=== PATIENT | male | born 1995 | race Caucasian/White ===

== ENCOUNTER 2018-03-19 16:18 | Emergency (ER) | payer SELFPAY ==
[2018-03-19 16:19] VITALS: BP 162/97; PULSE 86; RESP 16; TEMP 36.5; O2SAT 98; BMI 43.5
--- NOTE | 2018-03-19 16:34 | ED.DCSUM_ITS ---
- ER Visit Summary Date of Service: 03/19/18 Chief Complaint: [Left foot pain] History of Present Illness: The patient is a 22 M [presents the emergency department pain his left foot over the course last month and a half. Patient denies any trauma. Patient states that throughout the day he will have disco mfort when he steps with his left foot specifically to the medial and dorsal aspect of the foot. Patient has not had any fevers. Patient has no primary care physician and has not seen anybody for this.] Physical Examination: [Left foot-patient has tenderness to palpation over the first MTP joint with some hypertrophy noted over the medial aspect of the joint. Patient neurovascular intact distally. No obvious deformity. No soft tissue swelling, ecchymosis or bruising.] Test Results: [There is a left foot obtained showed no fractures or dislocatio ns. There was some mild soft tissue swelling noted.] Emergency Department Course and Treatment: [Patient refused crutches.] Treatment Plan: [She will be given a prescription for an anti-inflammatory and referral to podiatry.] Disposition: [Discharged home in stable condition] Impression: [Left foot pain-etiology uncertain.] This note was generated with [employer] dictation software. It may contain incorrect words, spelling, and punctuation that were not noted in review of the chart prio r to signing ED Disposition - Plan for ED Patient: Chief Complaint: Lower Extremity Injury Referrals: Lopez Gasca MD [Primary Care Provider] -
--- NOTE | 2018-03-19 16:40 | RAD_ITS ---
STUDY: X-RAY - LEFT FOOT CLINICAL: Male, 22 years old. Pain TECHNIQUE: Three view(s) of the foot were obtained. COMPARISON: None. FINDINGS: Bones: There are no acute osseous abnormalities. Joints: The visualized joints are unremarkable. Soft tissues: Mild diffuse soft tissue swelling. Foreign body: None RAD/Foot min 3 Views IMPRESSION: No acute osseous abnormalities are seen. There is mild diffuse soft tissue swelling. Electronically Signed: Noemi Galeas MD at 17:21 EST Tel Direct: [phone], Service support ,
--- NOTE | 2018-03-19 17:43 | ED.DEP ---
ED Disposition - Plan for ED Patient: Chief Complaint: Lower Extremity Injury Instructions: ED Sprain Foot Prescriptions: Naproxen [Naprosyn] 500 mg PO BID PRN #20 tab Referrals: Lopez Gasca MD [Primary Care Provider] - Kal Gr DPM [STAFF PHYSICIAN] - 3-5 Days
== END 2018-03-19 17:48 | disposition home or self-care (01) ==
PROVIDERS: Emergency Provider Emergency Medicine; Family Provider Pediatrics; PCP Pediatrics
DX: M79.672 Pain in left foot (principal); F17.220 Nicotine dependence, chewing tobacco, uncomplicated
CPT/HCPCS: 73630; 99282

== ENCOUNTER 2019-01-31 11:34 | Emergency (ER) | payer SELFPAY ==
[2019-01-31 11:36] VITALS: BP 139/76; PULSE 110; RESP 18; TEMP 38.7; O2SAT 94; BMI 43.4
[2019-01-31] MEDS: Ketorolac 15 MG/ML Vial IV (12:45)
[2019-01-31] MEDS: 0.9% Normal Saline 1,000 ML 1000 ML IV (12:45)
[2019-01-31 12:52] LABS: Absolute Lymphocyte Count 0.58 X10^3/uL (0.83-4.51); Absolute Neutrophil Count 6.8 X10^3/uL (2.0-7.7); Basophil# 0.05 X10^3/uL; Basophil% 0.6 % (0-1); Eosinophil# 0.03 X10^3/uL; Eosinophils% 0.4 % (0-5); Hematocrit 42.6 % (40-54); Hemoglobin 14.2 g/dL (13.0-16.5); Lymphocyte # 0.58 X10^3/ul (4.0); Lymphocyte % 7.3 % (19-41); Mean Corp Hgb Conc 33.3 g/dL (32-36); Mean Corpuscular Hgb 29.3 pg (27.0-32.0); Mean Platelet Vol. 10.7 fl (6.2-12.0); Monocyte# 0.46 X10^3/uL; Monocyte% 5.8 % (0-10); NRBC Flagged by Analyzer 0 % (0-5); Neutrophil % 85.4 % (47-70); POSITIVE DIFFERENTIAL YES; Platelet Count 210 K/mm3 (150-450); RBC Distribution Width CV 13.2 % (11.6-14.6); RBC Distribution Width SD 42.7 fl (35.1-43.9); Red Blood Count 4.84 M/mm3 (4.6-6.2)
[2019-01-31 13:04] LABS: Anion Gap 7 (5-15); BUN 13 mg/dL (7-18); BUN/Creat Ratio 11.4 RATIO (10-20); Calcium,Total 8.6 mg/dL (8.5-10.1); Chloride 106 mmol/L (98-107); Creatinine, Serum 1.14 mg/dL (0.70-1.30); Differential Indicated SCAN CRITERIA MET; EST Glomerular Filtration Rate 84 mL/min (>60); Est Glom Filt Rate - Afr Amer 101 mL/min (>60); Estimated Creatinine Clearance 112.92 ml/min; Glucose 91 mg/dL (74-106); Potassium 4.3 mmol/L (3.5-5.1); Sodium Level 138 mmol/L (136-145)
--- NOTE | 2019-01-31 13:04 | RAD_ITS ---
STUDY: X-RAY CHEST REASON FOR EXAM: Male, 23 years old. Cough, fever and body aches. TECHNIQUE: PA and lateral views of the chest. COMPARISON: None. FINDINGS: EKG electrodes are seen. Right middle lobe consolidation. There is no demonstrated pleural abnormality. Normal size heart. Normal mediastinum and alexsandra. Normal visualized pulmonary arteries. Normal visualized aortic arch and descending thoracic aorta. Normal visualized thoracic spine. Normal visualized ribs, clavicles, and shoulders. There is no demonstrated abnormality of the visualized soft tissue structures of the upper abdomen. RAD/Chest PA and Lateral IMPRESSION: Right middle lobe consolidation. Electronically Signed: Perez Carlos, at 13:36 EST , Service support ,
[2019-01-31 13:21] VITALS: BP 114/69; PULSE 88; RESP 28; TEMP 37.9; O2SAT 94
[2019-01-31 14:01] VITALS: O2SAT 96
--- NOTE | 2019-01-31 14:13 | ED.VIS.URI ---
History of Present Illness Chief Complaint: Fever Narrative: Patient presenting for evaluation secondary to a respiratory illness and fever. Patient reports that he has had symptoms over the course of about the last 3 days. Upon the onset of symptoms he was seen at urgent care, had a negative flu and was placed on a course of steroids. He states that he has not been having any improvement of the symptoms. He states that he has a cough that is minimally productive of sputum. He has generalized body aches, myalgias, significant fatigue. He denies any nausea vomiting or diarrhea. Patient is otherwise healthy and up-to-date on vaccines. Patient denies any recent travel, admissions, or antibiotic use. Past Medical History - Allergies and Home Meds Allergies/Adverse Reactions: Allergies No Known Allergies Allergy (Verified 01/31/19 11:38) Primary Care Physician: Care Physician,No Primary [Primary Care Provider] - Past Medical History: None Smoking Status: Current every day smoker Review of Systems All systems negative except as indicated General: Reports: Fever, Malaise, Sweats Eyes: Denies: Visual changes - bilaterally, Diplopia ENT: Denies: Rhinorrhea, Sore throat Cardiovascular: Denies: Chest pain, Palpitations Respiratory: Reports: Dyspnea, Cough, Sputum Gastrointestinal: Denies: Abdominal pain, Nausea, Vomiting, Diarrhea, Melena, Hematochezia Genitourinary: Denies: Dysuria, Hematuria, Frequency Musculoskeletal: Reports: Myalgias Skin: Denies: Rash Neurological: Denies: Headache Psych: Denies: Depression Endocrine: Denies: Polyuria Hematologic: Denies: Easy bruising Allergy: Denies: Uticaria Physical Exam Vital Signs/Narrative: Vital Signs Temp Pulse Resp BP Pulse Ox 01/31/19 13:21 100.3 F H 88 28 H 114/69 94 01/31/19 11:36 101.6 F H 110 H 18 139/76 H 94 Inital Vital Signs reviewed: Yes General: Well nourished, Well developed, - - Somewhat ill-appearing but otherwise not in physiologic distress Head: Normocephalic, Atraumatic Eyes: Perrl, EOMI Ears: Normal external canal, TM's clear Nose: Normal Inspection, No Rhinorrhea Mouth/Throat: Normal Inspection, No Posterior Erythema Neck: No Meningismus, Anterior Lymphadenopathy Cardiovascular: Regular rhythm, No murmurs, Tachycardia, - - Plus radial pulses bilaterally symmetric Respiratory: No distress, CTA bilaterally, Chest nontender Abdomen: Soft, Nontender, Nondistended, Normal bowel sounds Back: Nontender, Normal Inspection Extremities: Nontender, No edema Skin: Normal color, No rash Neurological: Alert, Oriented x3, Cranial nerves II-XII grossly intact, Normal Strength, Normal Sensation Psychological: Normal affect Diagnostic/Tx/Re-eval Chest X-Ray - ED: 2 View, Read by ED Physician, Read by Radiologist, Right Infiltrate - Medical Decision Making Patient presented secondary to flulike illness. Patient was found to be febrile in the emergency department. IV was established laboratory studies were obtained. CBC and chemistry unremarkable. Patient had improvement with fluids and Toradol. Flu swab was found to be negative. PA and lateral chest x-ray by my personal review as well as radiology shows right middle lobe infiltrate. Patient was ambulated in the emergency department and did not have desaturation. At this point I believe that he is appropriate for outpatient management. Patient will be started on a course of doxycycline first dose given in the emergency department. He understands signs and symptoms which to return. He was discharged in stable condition. Disposition: Home ED Disposition - Plan for ED Patient: Disposition: Home or Assisted Living Diagnosis: Community acquired pneumonia Instructions: PNEUMONIA (Adult) Prescriptions: Doxycycline 100 mg PO BID #20 cap Prescription Printed Referrals: Caleb Sanchez MD [NON-STAFF] - 1 Week
[2019-01-31 14:18] VITALS: BP 110/62; PULSE 90
[2019-01-31] MEDS: Doxycycline 100 MG CAPSULE PO (14:45)
[2019-01-31 14:46] VITALS: BP 131/76; PULSE 83; RESP 14; O2SAT 99
== END 2019-01-31 15:05 | disposition home or self-care (01) ==
PROVIDERS: Emergency Provider Emergency Medicine
DX: J18.9 Pneumonia, unspecified organism (principal); F17.210 Nicotine dependence, cigarettes, uncomplicated
CPT/HCPCS: 71046; 80048; 85025; 87804; 96361; 96374; 99284; J7030; A4216

== ENCOUNTER → 2024-04-21 | Outpatient (CLI) | payer OTHER, SELFPAY ==
[2024-04-21 12:21] LABS: Absolute Lymphocyte Count 1.18 X10^3/uL (0.83-4.51); Absolute Neutrophil Count 2.9 X10^3/uL (2.0-7.7); Basophil# 0.04 X10^3/uL; Basophil% 0.8 % (0-1); Eosinophil# 0.18 X10^3/uL; Eosinophils% 3.8 % (0-5); Hematocrit 47.2 % (40-54); Hemoglobin 15.2 g/dL (13.0-16.5); Lymphocyte # 1.18 X10^3/ul (0.83-4.51); Lymphocyte % 24.8 % (19-41); Mean Corp Hgb Conc 32.2 g/dL (32-36); Mean Corpuscular Hgb 28.3 pg (27.0-32.0); Mean Corpuscular Volume 87.9 fL (80-94); Mean Platelet Vol. 10.7 fl (6.2-12.0); Monocyte# 0.41 X10^3/uL; Monocyte% 8.6 % (0-10); NRBC Flagged by Analyzer 0 % (0-5); Neutrophil # 2.94 X10^3/uL (2.7-7.7); Neutrophil % 61.8 % (47-70); Platelet Count 247 K/mm3 (150-450); Red Blood Count 5.37 M/mm3 (4.6-6.2); White Blood Count 4.8 K/mm3 (4.4-11.0)
[2024-04-21 12:44] LABS: AST(SGOT) 25 U/L (15-37); Alanine Aminotransfer ALT/SGPT 74 U/L (16-61); Albumin, Serum 3.8 g/dL (3.2-5.0); Alkaline Phosphatase 38 U/L (45-117); Bilirubin, Direct 0.16 mg/dL (0.00-0.30); Globulin 3.7 g/dL (2.2-4.2); Protein, Total 7.5 g/dL (6.4-8.2)
== END | disposition home or self-care (01) ==
LOC: LAB 12:07
DX: K29.70 Gastritis, unspecified, without bleeding (principal); R74.8 Abnormal levels of other serum enzymes
CPT/HCPCS: 36415; 80076; 85025

== ENCOUNTER → 2024-04-24 | Outpatient (CLI) | payer OTHER, SELFPAY ==
--- NOTE | 2024-04-24 10:48 | US_ITS ---
PROCEDURE: ABDOMEN LIMITED REASON FOR EXAM: Elevated liver enzymes. Epigastric pain. COMPARISON: None FINDINGS: Liver: Hepatomegaly, with diffusely echogenic hepatic parenchyma. No focal process is seen. No evidence biliary ductal dilation. Portal vein hepatopetal flow is present. Gallbladder: Numerous stones are seen within the gallbladder lumen. Borderline gallbladder wall thickening is noted. No pericholecystic fluid collection is seen A positive sonographic Jimenes's sign is elicited. Common bile duct: Normal measuring 4 mm diameter. Pancreas: Visualized portions are sonographically unremarkable. Visualized portions of the right kidney are unremarkable. No right upper quadrant ascites. US/Abdomen Limited IMPRESSION: 1. Gallstones, along borderline gallbladder wall thickening. A positive sonogr aphic Jimenes's sign is reported. These findings are concerning possible Cholecystitis. 2. Hepatomegaly, with diffusely echogenic hepatic parenchyma, but without focal process noted Reading Location: [id number]
== END | disposition home or self-care (01) ==
PROVIDERS: PCP Internal Medicine
DX: R74.8 Abnormal levels of other serum enzymes (principal)
CPT/HCPCS: 76705

== ENCOUNTER 2024-04-28 10:23 | Day surgery (SDC) | payer OTHER, SELFPAY ==
[2024-04-28] VITALS (9 sets, daily range): BP systolic 96–124; BP diastolic 58–64; PULSE 55–67; RESP 16; TEMP 36.2–36.4; O2SAT 94–99; BMI 40.1
--- NOTE | 2024-04-28 10:31 | PRE.ANES_ITS ---
ASA Classification* ASA Classification ASA Classification: 2 Assessment & Plan Anesthesia* Anesthesia Assessment Anesthesia Assessment: Discussed sedation and/or anesthesia options, risks, benefits, and alternatives with patient/parents/legal guardian/POA. Questions invited. The patient/parents/legal guardian/POA seems to understand and agrees to proceed with anesthesia plan. Reviewed the physical assessment, medical history, allergy history and patient home medications list prior to surgery/procedure/anesthetic and documented any changes. Performed airway and anesthesia risk assessments. Anesthesia Type Anesthesia Type: MAC Anesthesia Focused Assessment* Airway Assessment Mouth opens: >3 cm Mallampati Score: II Focused Labs Anesthesia Preop lab: CBC WBC 4.8 K/mm3 (4.4-11.0) 04/21/24 12:04/21/24 RBC 5.37 M/mm3 (4.6-6.2) 04/21/24 12:04/21/24 Hgb 15.2 g/dL (13.0-16.5) 04/21/24 12:04/21/24 Hct 47.2 % (40-54) 04/21/24 12:09 04/21/24 Plt Count 247 K/mm3 (150-450) 04/21/24 12:09 04/21/24 CHEMISTRY Potassium 4.3 mmol/L (3.5-5.1) 01/31/19 12:35 01/31/19 Sodium 138 mmol/L (136-145) 01/31/19 12:35 01/31/19 BUN 13 mg/dL (7-18) 01/31/19 12:35 01/31/19 Creatinine 1.14 mg/dL (0.70-1.30) 01/31/19 12:35 01/31/19 Glucose 91 mg/dL (74-106) 01/31/19 12:35 01/31/19 COAG Pre-Assessment Diagnosis/Proposed Procedure Planned Operative Procedure(s): EGD Anesthesia History 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 When Was Last Pacemaker Check QUESTION #4 FULL TEXT: You/Your Family Experience fever (hyperthermia) with Anesthesia Last Oral Intake Last Oral intake: Last Oral Intake NPO since Meds taken in AM with sips of water? Meds patient instructed to take am of surgery PONV PONV - business ethics professor: PONV - business ethics professor Female No 04/23/24 11:40 HX of Motion Sickness Yes 04/23/24 11:40 HX of N/V After Surgery No 04/23/24 11:40 Non-Smoker Yes 04/23/24 11:40 Duration of Surgery greater No 04/23/24 11:40 than 60 minutes Number of Risk Factors 2 04/23/24 11:40 PONV Score Moderate Risk 04/23/24 11:40 Respiratory Assessment Respiratory Assessment - business ethics professor: Respiratory Tract Infection Hx - business ethics professor Hx Respiratory Tract Infection No 04/23/24 11:40 STOP Sleep Apnea STOP Sleep Apnea - business ethics professor: STOP Sleep Apnea - business ethics professor Hx Hypertension No 04/23/24 11:40 Hx Sleep Apnea No 04/23/24 11:40 CPAP BIPAP Do you snore loudly (louder No 04/23/24 11:40 than talking or can be heard Do you often feel tired/ No 04/23/24 11:40 fatigued/ sleepy during daytime? Has anyone observed you stop No 04/23/24 11:40 breathing during sleep? STOP Results Negative 04/23/24 11:40 QUESTION #5 FULL TEXT : Do you snore loudly (louder than talking or can be heard through closed doors)? Tobacco Use History Tobacco Use History - business ethics professor: Tobacco Use History - business ethics professor Tobacco Use Smoking Status Former smoker 04/23/24 11:40 Hx Tobacco Use Yes 04/23/24 11:40 Years Smoking Packs Smoked per Day Smoking Cessation Date was Yes - quit smoking within 15 04/23/24 11:40 within the last 15 years years Hx Smoking Cessation Date Hx Smoking Cessation Counseling Hematologic Medial History Hematologic Hx - business ethics professor: Hematologic Medical Hx - care navigator Hx of Blood Transfusion No 04/23/24 11:40 Hx of Transfusion in last 3 No 04/23/24 11:40 Months Date of Last Transfusion (if within last 3 months) Ever experience any problems No 04/23/24 11:40 with transfusion(s)? Specify any problems Hx of Preganancy in last 3 N/A 04/23/24 11:40 Months Nurse Filling Out Transfusion VCHRISTIN 04/23/24 11:40 & Questions: Date: 04/23/24 04/23/24 11:40 Time: 11:41 04/23/24 11:40 Patient unable to answer at this time (ie. confused, unrespo /Reproduction History /Reproductive History - business ethics professor: /Reproductive Hx- business ethics professor Hx Now Gestational Age (in weeks): EDC: Hx Hx Para Hx Section SAB PFSH Medical History Migraine headache Nicotine dependence History of irregular heartbeat Home Medications ?Medication ?Instructions ?Recorded ?Last Taken ?Type pantoprazole 40 mg tablet,delayed 40 mg PO BID #60 tab s 04/21/24 Unknown Rx release Allergy/AdvReac Type Severity Reaction Status Date / Time No Known Allergies Allergy Verified 04/23/24 11:35 Surgical History Hx of shoulder surgery Social History Smoking Status: Former smoker Review of Systems (Anesthesia) ROS Narrative System reviewed and no additional complaints, except as documented.
--- NOTE | 2024-04-28 11:35 | IMM_PTH ---
PATIENT: EN LOCKE LOC: EN U#:[id number] AGE/SX: 28/M ROOM: RE04/28/[address]: Dr. Todd Prasad DO : 1995 BED: DIS: 04/28/2024 SPEC #: [id number] RECD: 04/29/24 08:41 STATUS: ALBERTO REDolly #: [id number] FIDELIA: 04/28/24 11:[address]: Todd Prasad DEPT: IMMUNOHISTOCHEMISTRY RECD BY: Juan Anderson ENTERED: 04/29/24 08:42 SP TYPE: IMMUNO OTHR DR: Dr. Filiberto Chandler MD Tissues: B - Gastric mucous membrane Procedures: H Pylori (initial) PHYSICIAN & INSTITUTION [place] [id number] SPECIMEN INFORMATION: Tissue Source: B- Gastric body biopsy Clinical Info: Liver enzyme elevation, gastritis Specimen Number: [id number] CPT code: 88429 METHODOLOGY: Deparaffinized sections of prefer/formalin-fixed tissue or PAP/DQ stained slides are incubated with monoclonal/polyclonal antibodies/oligonucleotide probes. Localization is made via biotin free immunoperoxidase method. Appropriate controls are performed and reacted as expected. Results on target cell population are indicated in the following table: RESULTS: ANTIBODY / CLONE RESULT Block B H Pylori (polyclonal) positive These tests were developed and their performance characteristics determined by [facility]. They may not have been cleared or approved by the U.S. Food and Drug Administration. The FDA has determined that such clearance or approval is not necessary. The above immunohistochemical/dualISH markers are ordered and reviewed by the Pathologist. INTERPRETATION: B. Gastric body, biopsy: Positive for numerous H.pylori organisms. 04/30/2024
--- NOTE | 2024-04-28 11:35 | EGD_PTH ---
PATIENT: EN LOCKE LOC: MELVIN U#:[id number] AGE/SX: 28/M ROOM: RE04/28/[address]: Dr. Todd Prasad DO : 1995 BED: DIS: 04/28/2024 SPEC #: [id number] RECD: 04/28/24 18:14 STATUS: ALBERTO CAROLINE #: [id number] FIDELIA: 04/28/24 11:[address]: Todd Prasad DEPT: SURGICAL PATHOLOGY RECD BY: America Giron ENTERED: 04/29/24 09:40 SP TYPE: EGD BIOPSY HENNY DR: Dr. Filiberto Chandler MD Tissues: A - Duodenum, NOS B - Gastric mucous membrane C - Esophagus, NOS D - Esophagus, NOS Procedures: Special Stain Group I Surgery Specimen Level IV Alcian Blue/PAS (control) HEADER OPERATION: EGD with biopsies PRE-OP DIAGNOSIS: Liver enzyme elevation, gastritis TISSUE SUBMITTED: A- Duodenum biopsy, B- Gastric body biopsy, C- Distal esophagus biopsy,D- Random esophagus biopsy MICROSCOPIC DIAGNOSIS A. Duodenum, biopsy: Fragments of duodenal mucosa, no pathologic diagnosis. B. Gastric body, biopsy: Moderate chronic active gastritis. See comment. C. Distal esophagus, biopsy: Fragments of gastroesophageal mucosa with chronic inflammation. Intestinal metaplasia (goblet cell metaplasia) not identified. See comment. D. Esophagus, random biopsy: Fragments of benign squamous epithelium. . 04/30/2024 COMMENT B. The results of immunohistochemistry for Helicobacter pylori will be reported separately ([id number]). C. Alcian blue/PAS stain with matched control is used in the evaluation of the specimen. MICROSCOPIC DESCRIPTION Slides are reviewed. GROSS DESCRIPTION A. Received in fixative is one container labeled with the patient's name and designated Duodenum biopsy. The specimen consists of multiple irregular fragments of light matt soft tissue that in aggregate measure 1.4 x 0.3 x 0.2 cm. The specimen is totally submitted in one cassette. B. Received in fixative is one container labeled with the patient's name and designated Gastric body biopsy. The specimen consists of multiple irregular fragments of light matt soft tissue that in aggregate measure 2.3 x 0.3 x 0.2 cm. The specimen is totally submitted in one cassette. C. Received in fixative is one container labeled with the patient's name and designated Distal esophagus biopsy. The specimen consists of multiple irregular fragments of light matt soft tissue that in aggregate measure 1.1 x 0.2 x 0.2 cm. The specimen is totally submitted in one cassette. D. Received in fixative is one container labeled with the patient's name and designated Random esophagus biopsy. The specimen consists of multiple irregular fragments of light matt soft tissue that in aggregate measure 1.3 x 0.2 x 0.2 cm. The specimen is totally submitted in one cassette. 04/29/2024 TC:3 CPT:26503s6,87515
--- NOTE | 2024-04-28 12:00 | HP.PCM_ITS ---
HPI - General General Date of Admission: 04/28/24 Date of Service: 04/28/24 Chief Complaint: abdominal pain HPI Narrative Riana LOCKE, is a 28 M who presents for endoscopic evaluation of abdominal pain. to the office today for establishment with [facility] for c/o mid-epigastric pain and elevated liver enzymes. He reports mild nausea with severe at times constant stabbing epigastric pain. He states that eating food does not make the pain be tter or worse. He does report consumption of 3-4 C4 energy drinks daily due to extreme fatigue since stopping testosterone injections, formerly 250 twice weekly on a 12week on/off cycle. He states that he's also dealing with dizziness at times when standing from seated position. He reports increased flatulence with foul odor. He denies looking at his stool for blood so cannot answer for hematochezia or melena. He denies seeing blood on his toilet paper. He denies difficulty chewing and swallowing, denies cough, increased belching, abdominal bloating, constipation, and diarrhea. He denies use of NSAIDs: ibuprofen, aspirin, naprosyn. He reports daily use of tobacco-less nicotine pouches. He denies illicit drug use and alcohol consumption. [facility] Medical History Migraine headache Nicotine dependence History of irregular heartbeat Home Medications ?Medication ?Instructions ?Recorded ?Last Taken ?Type pantoprazole 40 mg tablet,delayed 40 mg PO BID #60 tab s 04/21/24 Unknown Rx release Allergy/AdvReac Type Severity Reaction Status Date / Time No Known Allergies Allergy Verified 04/23/24 11:35 Surgical History Hx of shoulder surgery Social History Smoking Status: Former smoker ROS Constitutional Constitutional: Denies fatigue, fever(s), poor appetite, weight gain or weight l oss Gastrointestinal Gastrointestinal: Denies belching, bloating, change in bowel habits, change in stool character, chewing difficulty, coffee ground emesis, constipation, cramping, diarrhea, dyspepsia, dysphagia, early satiety, excessive flatus, fecal incontinence, heartburn, hematemesis, hematochezia, hemorrhoids, loose stools, melena, nausea, odynophagia, rectal bleeding, tenesmus, vomiting or weight changes Vital Signs Vital Signs Vital Signs: 04/28/24 11:07 04/28/24 11:07 Temperature 97.5 F L Temperature Source Temporal Pulse Rate 57 L Respiratory Rate 16 Respiratory Pattern Normal Blood Pressure 124/64 H Blood Pressure Mean 84 Blood Pressure Source Monitor Blood Pressure Position Semi-Fowlers Blood Pressure Location Right Arm Pulse Ox 99 Oxygen Delivery Method Room Air Weight Weight: 304 lb 3.806 oz Body Mass Index (BMI) 40.1 Physical Exam Const alert, oriented x3, no apparent distress and healthy appearing General Appearance: cooperative GI normal to inspection, nondistended, normoactive bowel sounds, soft to palpation, non-tender and non-distended Percussion: normal to percussion Rectal Exam: deferred Assessment & Plan Assessment/Plan (1) Liver enzyme elevation: (2) Gastritis: QUALIFIERS: Gastritis type: unspecified gastritis Chronicity: acute Gastritis bleeding: presence of bleeding unspecified Qualified Code(s): K29.00 - Acute gastritis without bleeding PLAN: Plan Assessment and Plan Assessment and Plan (1) Liver enzyme elevation: Status: Acute (2) Gastritis: Status: Acute Qualifiers: Chronicity: acute Gastritis bleeding: presence of bleeding unspecified Gastritis type: unspecified gastritis Qualified Code(s): K29.00 - Acute gastritis without bleeding Orders: Orders CBC W/Diff, Automated Today K29.70 - Gastritis, unspecified, without bleeding, R74.8 - Abnormal levels of other serum enzymes Liver Profile Today K29.70 - Gastritis, unspecified, without bleeding, R74.8 - Abnormal levels of other serum enzymes Abdomen Limited Today R74.8 - Abnormal levels of other serum enzymes EGD 04/28/24 K29.70 - Gastritis, unspecified, without bleeding, R10.9 - Unspecified abdominal pain Medications: New pantoprazole 40 mg PO BID 60 tabs 1RF Discontinued naproxen Discontinued Reason: Pt no longer taking 500 mg PO BID PRN 20 tabs doxycycline monohydrate Discontinued Reason: Pt no longer taking 100 mg PO BID 20 caps 0RF Plan EN LOCKE, is a 28 M who presents to the office today for establishment with [facility] for c/o mid-epigastric pain and elevated liver enzymes. Differential diagnoses include: gastritis, PUD, GERD. Reviewed care plan with him and he is agreeable. Reviewed alarm symptoms of seeing blood in vomit, losing consciousness, severe pain that does not go away, to go to nearest emergency room for evaluation. * schedule urgent EGD * blood for CBC, liver panel * Abd US to evaluate liver * pantoprazole 40mg PO BID * provided work excuse * office FU after EGD
--- NOTE | 2024-04-28 12:29 | OP.EGD_ITS ---
Patient Name: Gutierrez Jensen Procedure Date: 04/28/2024 10:54 AM Date of : 1995 Age: 28 Procedure: Upper GI endoscopy Indications: Epigastric abdominal pain, Functional Dyspepsia, Suspected esophageal reflux Providers: Todd Prasad DO Referring MD: Filiberto Chandler Medicines: Monitored Anesthesia Care Patient Profile: This is a 28 year old male. Refer to note in patient chart for documentation of history and physical. Patient has symptoms of acute epigastric abdominal pain. Complications: No immediate complications. Procedure: Pre-Anesthesia Assessment: - Prior to the procedure, a History and Physical was performed, and patient medications and allergies were reviewed. The patient is competent. The risks and benefits of the procedure and the sedation options and risks were discussed with the patient. All questions were answered and informed consent was obtained. Patient identification and proposed procedure were verified by the physician in the pre-procedure area. Mental Status Examination: alert and oriented. Airway Examination: normal oropharyngeal airway and neck mobility. Respiratory Examination: clear to auscultation. CV Examination: normal. Prophylactic Antibiotics: The patient does not require prophylactic antibiotics. Prior Anticoagulants: The patient has taken no anticoagulant or antiplatelet agents except for NSAID medication. ASA Grade Assessment: II - A patient with mild systemic disease. After reviewing the risks and benefits, the patient was deemed in satisfactory condition to undergo the procedure. The anesthesia plan was to use monitored anesthesia care (MAC). Immediately prior to administration of medications, the patient was re-assessed for adequacy to receive sedatives. The heart rate, respiratory rate, oxygen saturations, blood pressure, adequacy of pulmonary ventilation, and response to care were monitored throughout the procedure. The physical status of the patient was re-assessed after the procedure. After obtaining informed consent, the endoscope was passed under direct vision. Throughout the procedure, the patient's blood pressure, pulse, and oxygen saturations were monitored continuously. The gastroscope was introduced through the mouth, and advanced to the second part of duodenum. The upper GI endoscopy was accomplished without difficulty. The patient tolerated the procedure well. Scope In: 12:15:19 PM Scope Out: 12:21:58 PM Total Procedure Duration Time 0 hours 6 minutes 39 seconds Findings: Mucosal changes including feline appearance and small-caliber esophagus were found in the entire esophagus. Biopsies were obtained from the proximal and distal esophagus with cold forceps for histology of suspected eosinophilic esophagitis. Verification of patient identification for the specimen was done. Estimated blood loss was minimal. Abnormal motility was noted in the distal esophagus. The cricopharyngeus was normal. There are extra peristaltic waves in the esophageal body. The distal esophagus/lower esophageal sphincter is spastic, but gives up passage to the endoscope. Secondary peristaltic waves are noted. Diffuse moderate inflammation characterized by erythema was found in the entire examined stomach. Biopsies were taken with a cold forceps for histology. Verification of patient identification for the specimen was done. Estimated blood loss was minimal. Biopsies were taken with a cold forceps for Helicobacter pylori testing. Verification of patient identification for the specimen was done. Estimated blood loss was minimal. Suspect gastroparesis due to absence of peristalsis and patient symptoms. Patchy mildly erythematous mucosa without active bleeding and with no stigmata of bleeding was found in the duodenal bulb and in the first portion of the duodenum. Biopsies were taken with a cold forceps for histology. Verification of patient identification for the specimen was done. Estimated blood loss was minimal. Impression: - Esophageal mucosal changes suspicious for eosinophilic esophagitis. - Abnormal esophageal motility, suspicious for esophageal spasm. - Chronic gastritis. Biopsied. - Gastroparesis. - Erythematous duodenopathy. Biopsied. - Biopsies were taken with a cold forceps for evaluation of eosinophilic esophagitis. Recommendation: - Discharge patient to home. - Resume previous diet. - Continue present medications. - Await pathology results. Procedure Code(s): --- Professional --- 36457, Esophagogastroduodenoscopy, flexible, transoral; with biopsy, single or multiple CPT copyright 2021 [employer]. All rights reserved. The codes documented in this report are preliminary and upon development engineer review may be revised to meet current compliance requirements. Todd Prasad DO 04/28/2024 12:29:34 PM This report has been signed electronically. Number of Addenda: 0 Note Initiated On: 04/28/2024 10:54 AM
--- NOTE | 2024-04-28 12:30 | OP.CCLET_ITS ---
04/28/2024 Filiberto Chandler [address] [place] [address] Re : Upper GI endoscopy procedure for Gutierrez Jensen Dear Dr. Chandler This procedure was performed on Sunday, April 28, 2024. My impressions and recommendations are as follows: Impressions : - Esophageal mucosal changes suspicious for eosinophilic esophagitis. - Abnormal esophageal motility, suspicious for esophageal spasm. - Chronic gastritis. Biopsied. - Gastroparesis. - Erythematous duodenopathy. Biopsied. - Biopsies were taken with a cold forceps for evaluation of eosinophilic esophagitis. Recommendations : - Discharge patient to home. - Resume previous diet. - Continue present medications. - Await pathology results. My findings are described in the full procedure note, which is enclosed. If I can be of further assistance, please feel free to contact me at . Sincerely, Todd Prasad, 04/28/2024 12:29:34 PM This report has been signed electronically.
--- NOTE | 2024-04-28 12:35 | PCM.POST.ANE ---
Anesthesia: Postop Eval I Current Vital Signs Temperature: 97.2 F Pulse Rate: 67 Blood Pressure: 101/58 Respiratory Rate: 16 Pulse Ox: 95 Oxygen Delivery Method: Room Air Assessment Airway patent: Yes Spontaneous unlabored respirations: Yes Mental status: Asleep nausea: No Vomiting: No Anesthesia Complication: No Fluid Hydration Crystalloid volume administer (ml): 40 Total IV fluid infused: 40 Progress Note Anesthesia document: Postop Eval 1 completed: Yes
--- NOTE | 2024-04-28 12:41 | PCM.POSTANE2 ---
Anesthesia Postop Eval I Sum Postop Eval Completion status Anesthesia document: Postop Eval 1 completed: Yes Anesthesia Postop Eval I Summary Anesthesia Postop Eval I Summary: Anesthesia Postop Eval I: Assessment Summary Airway patent Yes 04/28/24 12:37 [email or web address] Spontaneous unlabored Yes 04/28/24 12:37 [email or web address] respirations Mental status Asleep 04/28/24 12:37 [email or web address] nausea No 04/28/24 12:37 [email or web address] Vomiting No 04/28/24 12:37 [email or web address] Anesthesia Postop Eval I: Fluid Summary Crystalloid volume administer 40 04/28/24 12:37 [email or web address] (ml) Colloids volume administered ( ml) Blood Product volume administered (ml) Total IV fluid infused 40 04/28/24 12:37 [email or web address] Anesthesia Postop Eval I: Summary Notes Anesthesia Complication No 04/28/24 12:37 [email or web address] Anesthesia Complication Comment: Post-operative progress note Anesthesia: Postop Eval II Evaluation Mental status: Awake Pain Level: 0 nausea: No Vomiting: No
== END 2024-04-28 13:36 | disposition home or self-care (01) ==
LOC: EN 10:28 → AC 10:28
PROVIDERS: PCP Internal Medicine; Referring Provider Internal Medicine; Visit Provider Internal Medicine Gastroenterology
PROC: 0DJ08ZZ Inspection of Upper Intestinal Tract, Via Natural or Artificial Opening Endoscopic (ICD-10-PCS; CPT 43235; principal; 2024-04-28 11:30)
DX: K29.50 Unspecified chronic gastritis without bleeding (principal); K20.90 Esophagitis, unspecified without bleeding; Z87.891 Personal history of nicotine dependence; K31.84 Gastroparesis; R74.8 Abnormal levels of other serum enzymes; Z79.899 Other long term (current) drug therapy
CPT/HCPCS: 43239; 88305; 88312; 88342; A4216; J2405

== ENCOUNTER → 2024-05-06 | Outpatient (CLI) | payer OTHER, SELFPAY ==
[2024-05-06 09:42] LABS: Absolute Neutrophil Count 3.7 X10^3/uL (2.0-7.7); Basophil# 0.04 X10^3/uL; Basophil% 0.7 % (0-1); Eosinophil# 0.19 X10^3/uL; Eosinophils% 3.4 % (0-5); Hematocrit 47.3 % (40-54); Hemoglobin 15.7 g/dL (13.0-16.5); Lymphocyte % 21.3 % (19-41); Mean Corp Hgb Conc 33.2 g/dL (32-36); Mean Corpuscular Hgb 28.9 pg (27.0-32.0); Mean Corpuscular Volume 86.9 fL (80-94); Mean Platelet Vol. 10.7 fl (6.2-12.0); Monocyte# 0.51 X10^3/uL; Monocyte% 9.1 % (0-10); NRBC Flagged by Analyzer 0 % (0-5); Neutrophil # 3.68 X10^3/uL (2.7-7.7); Neutrophil % 65.3 % (47-70); Platelet Count 241 K/mm3 (150-450); RBC Distribution Width CV 14.1 % (11.6-14.6); RBC Distribution Width SD 45.1 fl (35.1-43.9); Red Blood Count 5.44 M/mm3 (4.6-6.2); White Blood Count 5.6 K/mm3 (4.4-11.0)
[2024-05-07 12:18] LABS: ALB/GLOB Ratio 1.5 RATIO (0.9-2.4); AST(SGOT) 30 U/L (<=37); Alanine Aminotransfer ALT/SGPT 58 U/L (<=46); Albumin, Serum 4.5 g/dL (3.5-5.0); Alkaline Phosphatase 39 U/L (40-129); Anion Gap 14 (5-15); BUN 18 mg/dL (4-19); BUN/Creat Ratio 16.8 RATIO (10-20); CORTISOL AM 8.43 ug/dL (6.02-18.40); CPK Total, Creatine Kinase 277 U/L (24-195); Calcium 9.6 mg/dL (7.6-11.0); Chloride 103 mmol/L (96-108); Creatinine, Serum 1.1 mg/dL (0.8-1.3); EST Glomerular Filtration Rate 94 (>60); Ferritin 180 ng/mL (37-417); Globulin 2.9 g/dL (2.2-4.2); Glucose 70 mg/dL (70-99); Potassium 4.6 mmol/L (3.3-5.1); Protein, Total 7.4 g/dL (5.9-8.4); Sodium Level 141 mmol/L (133-145); Total Bilirubin 0.67 mg/dL (0.00-1.30)
[2024-05-07 15:08] LABS: Anti-Centromere B Ab <0.2 AI (0.0-0.9); Anti-Chromatin <0.2 AI (0.0-0.9); Anti-Jo <0.2 AI (0.0-0.9); Anti-Mitochondrial AB <20.0 Units (0.0-20.0); Anti-Scleroderma-70 AB <0.2 AI (0.0-0.9); Anti-dsDNA Ab 10 IU/mL (0-9); RNP Ab 0.2 AI (0.0-0.9); SJOGREN'S Anti-SS-A test < 0.2 AI (0.0-0.9); SJOGREN'S Anti-SS-B test < 0.2 AI (0.0-0.9); Smith Ab <0.2 AI (0.0-0.9)
[2024-05-07 15:59] LABS: Carbon Dioxide 22.8 mmol/L (22.0-29.0); Iron 185 ug/dL (65-175); LDH 203 U/L (87-241)
[2024-05-08 01:43] LABS: Iron Binding Capacity,Total 340 ug/dL (250-450)
[2024-05-08 08:08] LABS: Anti-Smooth Muscle ABS 7 Units (0-19); Cytoplasmic Ab (C-ANCA) <1:20 titer (Neg:<1:20); Immunoglobulin A 322 mg/dL (90-386); Perinuclear Ab (P-ANCA) <1:20 titer (Neg:<1:20); t-Transglutaminase IgA <2 U/mL (0-3)
== END | disposition home or self-care (01) ==
LOC: LAB 09:20
PROVIDERS: PCP Internal Medicine
DX: K80.20 Calculus of gallbladder without cholecystitis without obstruction (principal); R16.0 Hepatomegaly, not elsewhere classified
CPT/HCPCS: 36415; 80053; 82390; 82533; 82550; 82728; 82784; 83516; 83540; 83550; 83615; 84443; 85025; 86037; 86225; 86235

== ENCOUNTER 2024-05-29 05:44 | Day surgery (SDC) | payer OTHER, SELFPAY ==
[2024-05-29] VITALS (15 sets, daily range): BP systolic 99–162; BP diastolic 55–99; PULSE 63–97; RESP 16–20; TEMP 36.1–37.2; O2SAT 92–99; BMI 40.4
--- NOTE | 2024-05-29 06:23 | EKG12_ITS ---
Test Reason : P Blood Pressure : */* mmHG Vent. Rate : 63 BPM Atrial Rate : 63 BPM P-R Int : 172 ms QRS Dur : 116 ms QT Int : 404 ms P-R-T Axes : 61 25 37 degrees QTcB Int : 413 ms Normal sinus rhythm Normal ECG When compared with ECG of 01-Nov-2008 21:30, PREVIOUS ECG IS PRESENT Confirmed by CIERA NOLAN, KAMRAN ([id number]), associate editor EDITH BARRERA ([id number]) on 05/30/2024 11:38:36 AM Referred By: Nba Mcadams Confirmed By: KAMRAN VANG MD
[2024-05-29] MEDS: 0.9% Normal Saline (1000mL) 1,000 ML 15 ML IV (06:35)
[2024-05-29] MEDS: INDOCYANINE GREEN 3.75 MG in Syringe 1.5 ML 999 MG IV (06:36)
--- NOTE | 2024-05-29 06:52 | HP.PCM_ITS ---
HPI - General General Date of Admission: 05/29/24 Date of Service: 05/29/24 Chief Complaint: RUq pain HPI Narrative EN LOCKE, is a 28 M who presents for elective lap elizabeth. recent RUq pain [facility] Medical History Bloody stools Cholelithiases Helicobacter pylori (H. pylori) infection Migraine headache Nicotine dependence History of irregular heartbeat Home Medications ?Medication ?Instructions ?Recorded ?Last Taken ?Type vonoprazan 20 mg-amoxicillin 500 See Rx Instructions P O PER PKG DIR 05/20/24 05/26/24 Rx mg-clarithromycin 500 mg combo pack #112 pkgs Allergy/AdvReac Type Severity Reaction Status Date / Time No Known Allergies Allergy Verified 05/29/24 06:16 Family History Grandfather Cancer lung Diabetes Heart disease Aunt Diabetes Surgical History History of esophagogastroduodenoscopy (EGD) Hx of shoulder surgery Social History Smoking Status: Current some day smoker tobacco type: cigarettes and smokeless tobacco alcohol intake: never substance use type: does not use Vital Signs Vital Signs Vital Signs: 05/29/24 06:14 05/29/24 06:14 Temperature 97.0 F L Temperature Source Temporal Pulse Rate 64 Respiratory Rate 16 Respiratory Pattern Normal Blood Pressure 133/76 H Blood Pressure Mean 95 Blood Pressure Source Monitor Blood Pressure Position Semi-Fowlers Blood Pressure Location Left Forearm Pulse Ox 99 Oxygen Delivery Method Room Air Weight Weight: 306 lb 7.08 oz Body Mass Index (BMI) 40.4 Physical Exam Const alert, oriented x3 and no apparent distress Assessment & Plan Assessment/Plan (1) Cholelithiases: PLAN: Plan lap elizabeth this AM
--- NOTE | 2024-05-29 06:52 | PRE.ANES_ITS ---
ASA Classification* ASA Classification ASA Classification: 3 Assessment & Plan Anesthesia* Anesthesia Assessment Anesthesia Assessment: Discussed sedation and/or anesthesia options, risks, benefits, and alternatives with patient/parents/legal guardian/POA. Questions invited. The patient/parents/legal guardian/POA seems to understand and agrees to proceed with anesthesia plan. Reviewed the physical assessment, medical history, allergy history and patient home medications list prior to surgery/procedure/anesthetic and documented any changes. Performed airway and anesthesia risk assessments. Anesthesia Type Anesthesia Type: General (Consider GlideScope) History Source History Obtained from:: Patient and Chart Anesthesia Focused Assessment* Temperature: 97.0 F Pulse Rate: 64 Blood Pressure: 133/76 Respiratory Rate: 16 Pulse Ox: 99 Oxygen Delivery Method: Room Air Airway Assessment Mouth opens: >3 cm Mallampati Score: IV Teeth Condition: Caps/Crowns (Patient has crown right lower molar with a sharp edge. Missing the molar in front of it. Rest of the teeth are tight.) Neck Range of motion (ROM): Full ROM Focused Labs Anesthesia Preop lab: CBC WBC 5.6 K/mm3 (4.4-11.0) 05/06/24 09:05/06/24 RBC 5.44 M/mm3 (4.6-6.2) 05/06/24 09:05/06/24 Hgb 15.7 g/dL (13.0-16.5) 05/06/24 09:05/06/24 Hct 47.3 % (40-54) 05/06/24 09:05/06/24 Plt Count 241 K/mm3 (150-450) 05/06/24 09:05/06/24 CHEMISTRY Potassium 4.6 mmol/L (3.3-5.1) 05/06/24 09:05/06/24 Sodium 141 mmol/L (133-145) 05/06/24 09:05/06/24 BUN 18 mg/dL (4-19) 05/06/24 09:05/06/24 Creatinine 1.1 mg/dL (0.8-1.3) 05/06/24 09:05/06/24 Glucose 70 mg/dL (70-99) 05/06/24 09:05/06/24 TSH 1.980 uIU/mL (0.300-4.200) 05/06/24 09:23 04/13 08/03 COAG Pre-Assessment Diagnosis/Proposed Procedure Planned Operative Procedure(s): Robotic Cholecystectomy w/grams Anesthesia History Anesthesia History - topographical engineer: Anesthesia History - topographical engineer Hx Hospitalization No 05/16/24 08:35 Any Problems With Anesthesia No 05/16/24 08:35 Cholinesterase deficiency No 05/16/24 08:35 You/Your Family Experience No 05/16/24 08:35 fever (hyperthermia) with Relationship Recent Exposure to Contagious No 05/29/24 06:14 Disease Does patient have nerve No 05/16/24 08:35 stimulator Patient instructed to have device shut off --Does patient have Pacemaker No 05/29/24 06:14 or ICD? When Was Last Pacemaker Check QUESTION #4 FULL TEXT: You/Your Family Experience fever (hyperthermia) with Anesthesia Last Oral Intake Last Oral intake: Last Oral Intake NPO since 22:00 05/29/24 06:14 Meds taken in AM with sips of No 05/29/24 06:14 water? Meds patient instructed to take am of surgery PONV PONV - topographical engineer: PONV - topographical engineer Female No 05/16/24 08:35 HX of Motion Sickness No 05/16/24 08:35 HX of N/V After Surgery No 05/16/24 08:35 Non-Smoker No 05/16/24 08:35 Duration of Surgery greater Yes 05/16/24 08:35 than 60 minutes Number of Risk Factors 1 05/16/24 08:35 PONV Score Low Risk 05/16/24 08:35 Height & Weight Height & Weight: Anesthesia: Height & Weight Height 6 ft 1 in 05/29/24 06:14 Weight: 139 kg 05/29/24 06:14 Body Mass Index (BMI) 40.4 05/29/24 06:14 Respiratory Assessment Respiratory Assessment - topographical engineer: Respiratory Tract Infection Hx - topographical engineer Hx Respiratory Tract Infection No 05/16/24 08:35 STOP Sleep Apnea STOP Sleep Apnea - topographical engineer: STOP Sleep Apnea - topographical engineer Hx Hypertension No 05/16/24 08:35 Hx Sleep Apnea No 05/16/24 08:35 CPAP No 05/16/24 08:35 BIPAP Do you snore loudly (louder No 05/16/24 08:35 than talking or can be heard Do you often feel tired/ No 05/16/24 08:35 fatigued/ sleepy during daytime? Has anyone observed you stop No 05/16/24 08:35 breathing during sleep? STOP Results Negative 05/16/24 08:35 QUESTION #5 FULL TEXT : Do you snore loudly (louder than talking or can be heard through closed doors)? Tobacco Use History Tobacco Use History - topographical engineer: Tobacco Use History - topographical engineer Tobacco Use Smoking Status Current some day smoker 05/16/24 08:35 Hx Tobacco Use Yes 05/16/24 08:35 Years Smoking Packs Smoked per Day Smoking Cessation Date was within the last 15 years Hx Smoking Cessation Date Hx Smoking Cessation Counseling Hematologic Medial History Hematologic Hx - topographical engineer: Hematologic Medical Hx - well digger Hx of Blood Transfusion No 05/16/24 08:35 Hx of Transfusion in last 3 No 05/16/24 08:35 Months Date of Last Transfusion (if within last 3 months) Ever experience any problems No 05/16/24 08:35 with transfusion(s)? Specify any problems Hx of Preganancy in last 3 N/A 05/16/24 08:35 Months Nurse Filling Out Transfusion VCHRISTIN 05/16/24 08:35 & Questions: Date: 05/16/24 05/16/24 08:35 Time: 08:36 05/16/24 08:35 Patient unable to answer at this time (ie. confused, unrespo /Reproduction History /Reproductive History - topographical engineer: /Reproductive Hx- topographical engineer Hx Now Gestational Age (in weeks): EDC: Hx Hx Para Hx Section SAB Active Medications Active Medications: Current Medications Generic Name Dose Route Start Last Admin Trade Name Freq PRN Reason Stop Dose Admin Sodium Chloride 1,000 mls @ 15 mls/hr 05/29/24 06:10 05/29/24 06:35 IV 15 mls/hr .Q48H ARIEL Administration PFSH Medical History Bloody stools Cholelithiases Helicobacter pylori (H. pylori) infection Migraine headache Nicotine dependence History of irregular heartbeat Home Medications ?Medication ?Instructions ?Recorded ?Last Taken ?Type vonoprazan 20 mg-amoxicillin 500 See Rx Instructions P O PER PKG DIR 05/20/24 05/26/24 Rx mg-clarithromycin 500 mg combo pack #112 pkgs Allergy/AdvReac Type Severity Reaction Status Date / Time No Known Allergies Allergy Verified 05/29/24 06:16 Family History Grandfather Cancer lung Diabetes Heart disease Aunt Diabetes Surgical History History of esophagogastroduodenoscopy (EGD) Hx of shoulder surgery Social History Smoking Status: Current some day smoker tobacco type: cigarettes and smokeless tobacco alcohol intake: never substance use type: does not use Review of Systems (Anesthesia) ROS Narrative System reviewed and no additional complaints, except as documented.
--- NOTE | 2024-05-29 07:30 | GALL_PTH ---
PATIENT: EN LOCKE LOC: [facility] [place] U#:[id number] AGE/SX: 28/M ROOM: RE05/29/[address]: Dr. Nba Mcadams MD : 1995 BED: DIS: 05/29/2024 SPEC #: [id number] RECD: 05/29/24 10:29 STATUS: ABLERTO REDolly #: [id number] FIDELIA: 05/29/24 07:[address]: Nba Mcadams DEPT: SURGICAL PATHOLOGY RECD BY: Moise Sosa ENTERED: 05/29/24 11:23 SP TYPE: ABBY INMAN DR: Dr. Filiberto Chandler MD Tissues: A - Gallbladder, NOS Procedures: Surgery Specimen Level III HEADER OPERATION: Robotic cholecystectomy PRE-OP DIAGNOSIS: Cholelithiasis TISSUE SUBMITTED: A- Gallbladder MICROSCOPIC DIAGNOSIS Gallbladder, cholecystectomy: Mild chronic cholecystitis and cholelithiasisTherese Rojas MD, 06/05/2024 MICROSCOPIC DESCRIPTION Slides are reviewed. GROSS DESCRIPTION A. Received in fixative is one container labeled with the patient's name and designated Gallbladder. The specimen consists of one previously opened gallbladder measuring 10 x 2.9 x 2.2cm. The opening is ragged and stretched. The gallbladder contains multiple yellow gallstones. The mucosa is red and shows cholesterol. Dragger sections are submitted in one cassette. 05/29/2024 CPT:44072, TC:3
[2024-05-29] MEDS: Bupiv/Epi 0.25% 30 ML Vial (09:05)
--- NOTE | 2024-05-29 09:29 | PCM.POST.ANE ---
Anesthesia: Postop Eval I Current Vital Signs Temperature: 98.4 F Pulse Rate: 66 Blood Pressure: 162/78 Respiratory Rate: 16 Pulse Ox: 95 Oxygen Delivery Method: Nasal Cannula (with oral airway in place) Oxygen Flow Rate (L/min): 4 Assessment Airway patent: Yes Spontaneous unlabored respirations: Yes Mental status: Asleep nausea: No Vomiting: No Anesthesia Complication: No Fluid Hydration Crystalloid volume administer (ml): 1,500 Total IV fluid infused: 1,500 Progress Note Anesthesia document: Postop Eval 1 completed: Yes
--- NOTE | 2024-05-29 09:33 | PCM.POST.ANE ---
Anesthesia: Postop Eval I Current Vital Signs Temperature: 97.6 F Pulse Rate: 97 Blood Pressure: 142/99 Respiratory Rate: 20 Pulse Ox: 96 Oxygen Delivery Method: Room Air Assessment Airway patent: Yes Spontaneous unlabored respirations: Yes nausea: No Vomiting: No Anesthesia Complication: No Fluid Hydration Crystalloid volume administer (ml): 1,000 Total IV fluid infused: 1,000 Progress Note Anesthesia document: Postop Eval 1 completed: Yes
--- NOTE | 2024-05-29 09:44 | DCINST_ITS ---
Discharge Instructions Diet Discharge Diet: Light diet - advance as tolerated Activity Discharge Activity: Return to Normal Activity and May Shower May shower in (days): 1 Ice area for (Minutes): 30 Lifting Restrictions: No lifting pushing or pulling more than 20 pounds for 4 weeks Dressing / Incision Call your doctor if your incision/area has: Continuous Slow Oozing, Sudden Increased Bleeding, Increased Pain/ Swelling, Increased Redness, Foul Smelling Discharge and Swelling at the incision site Call your doctor if you observe: Fever of 101 or Higher Cleanse incision/area with: Soap & Water Follow Up Care Please Follow Up With: Nba Mcadams MD When: 2 weeks. Please call office to schedule appointment Test Results: Test results from this visit will be discussed in further detail at your follow- up appointment, if applicable. Discharge Plan Admission Primary Reason for Your Visit: Robotic cholecystectomy Attending Provider: Nba Mcadams Primary Care Provider: Filiberto Chandler Instructions Print Language: Filipino Discharge Orders/Prescriptions Prescriptions: New tramadol 50 mg tablet 50 mg PO Q8H PRN (Reason: pain) 4 Days Qty: 10 0RF Continued enkwngwuti-sbkylryyeru-cozffim 20-500-500 mg combo pack See Rx Instructions PO PER PKG DIR Qty: 112 0RF Rx Instructions: PO PER PKG DIR vonoprazan 20mg, 1 tab by mouth twice daily clarithromycin 500mg, 1 tab by mouth twice daily amoxicillin 500mg, 2 tabs by mouth twice daily Referrals / Follow Up: Filiberto Chandler MD [Primary Care Provider] - Disposition Disposition (needs filled in before D/C Order can be placed): Home, Self Care
--- NOTE | 2024-05-29 09:51 | PCM.OPRPT ---
Problems Associated Problem List Diagnoses (1) Cholelithiases: Procedures Digestive 40xxx-49xxx: [id number] Laparo cholecystectomy/graph Operative Report (Standard) Operative Information Date of Procedure: 05/29/24 Pre-Operative Diagnosis: Symptomatic cholelithiasis Post-Operative Diagnosis: Symptomatic cholelithiasis. Surgery/Procedure Performed: Robotic cholecystectomy with intraoperative ICG cholangiography profiling machine set up operator tool: Yes Top [employer]ing Press Operator: [place] Dooley Tasks completed by first aid attendant: Closing, Trocar and Other Additional commercial loan assistant?: No Type of Anesthesia: General and Local RN Documented Start/Stop Times: Operation Date: 05/29/24 07:30 Case Time Into Pre-Op 05/29/24 06:07 Out of Pre-Op 05/29/24 07:21 Anesthesia Start 05/29/24 07:26 Into Room 05/29/24 07:26 Procedure Start 05/29/24 07:50 Procedure End 05/29/24 09:11 Anesthesia End 05/29/24 09:22 Out of Room 05/29/24 09:22 Into Recovery 05/29/24 09:25 Procedure Start Time: 07:50 Procedure Stop Time: 09:11 Select all DRAINS/GRAFTS/IMPLANTS that apply: None Estimated Blood Loss: 10 mL Specimen collected: Yes Description of specimen(s) removed: Gallbladder and contents Description of surgery: The patient is a 28-year-old male recently seen through the office with periodic right upper quadrant pain. A recent ultrasound showed gallstones and possibly some mild gallbladder wall thickening. Patient also had H. pylori however GI not convinced this was the cause for his symptoms. I saw the patient in the office and offered him a robotic cholecystectomy with ICG cholangiograms. We discussed the details of the planned procedure and he wished to proceed. The patient was brought to the operative room today following informed consent. He was placed supine on the operative table with arms outstretched on arm boards. General anesthesia was induced. Once adequately sedated the abdomen was then prepped and draped in usual sterile manner. An 8 mm incision was made just above the umbilicus. Through this a 5 mm trocar was placed optically. This was placed without incident once in place the abdomen is then fully insufflated with CO2 gas. A 5 mm 0 degree scope was inserted. There were no signs of bowel or vascular injury. Next an 8 mm trocar was placed on the right side of the abdomen. This was placed without incident. Another 8 mm trocar was placed at about the same level on the left side of the abdomen along with another 8 mm trocar just superior and lateral. The original 5 mm trocar was switched to an 8 mm trocar. All of these were placed without incident. The da Dominic robot was then brought onto the operative field and all ports were docked. 2 graspers and hook were inserted in addition to the camera. I was then able to take control of the robot reflecting the gallbladder in a cephalad direction. There was some filmy adhesions to the undersurface of the gallbladder. These were taken down using electrocautery and the hook. The infundibulum the gallbladder was eventually identified. The cystic duct was dissected out first. Peritoneum was incised on either side of the gallbladder to improve mobility and visualization. The lower third of the gallbladder was dissected off of the undersurface of the liver. This allowed critical view of safety to identify the cystic duct. ICG cholangiogram was also performed and this clearly showed this to be the cystic duct. It appeared that the cystic artery may have been cauterized and transected during the dissection. There is no evidence of any bleeding. Weck clips were then applied to the cystic duct and the cystic duct was then transected. There was some spillage of bile and a couple stones from the lower aspect of the gallbladder as this became somewhat thin. The gallbladder was then dissected off the undersurface of the liver. Every effort was made with manipulation of the gallbladder to minimize any spillage of bile or additional stones. The gallbladder once free was placed into a bag along with stones. The entire right upper quadrant was then copiously irrigated with saline and suction clean and dry. There were some stone fragments which were removed with a grasper as well as with suction. Hemostasis was excellent. The gallbladder was removed from the left upper quadrant incision. I did have to extend the skin incision and then fascia opening to get the gallbladder out. I also opened up the gallbladder and removed quite a bit of stones in order to get the gallbladder out as the gallbladder was completely packed with stones and these were fairly large stones as well. The fascia at this left upper quadrant site was closed using 0 PDS using a fascial closure device. At this point insufflation was allowed to escape and the robot was undocked. Local anesthetic was injected into the incisions and closed using 4-0 Vicryl. Skin glue was applied as dressing. He was awakened from anesthesia and taken to recovery in good condition A TEST PILOT was utilized as a rn first assist. His role included instrument changes and assistance with closure Surgical Findings: Normal ICG cholangiogram Complications Complications: No Admit VTE Documentation VTE Present on Admission: No VTE Mechan Device Prophylaxis: SCD's VTE Pharm Prophylaxis ordered?: No Reason prophylaxis not ordered: Treatment Not Indicated
[2024-05-29] MEDS: traMADol 50 MG Tablet PO (12:05)
[2024-05-29] MEDS: Ketorolac 30 MG/ML Syringe IV (13:13)
--- NOTE | 2024-05-29 14:13 | POSTOPAN2_ITS ---
Anesthesia Postop Eval I Sum Postop Eval Completion status Anesthesia document: Postop Eval 1 completed: Yes Anesthesia Postop Eval I Summary Anesthesia Postop Eval I Summary: Anesthesia Postop Eval I: Assessment Summary Airway patent Yes 05/29/24 09:30 AUTOMATION AND CONTROLS [email or web address] Spontaneous unlabored Yes 05/29/24 09:30 AUTOMATION AND CONTROLS [email or web address] respirations Mental status Asleep 05/29/24 09:30 AUTOMATION AND CONTROLS [email or web address] nausea No 05/29/24 09:30 AUTOMATION AND CONTROLS [email or web address] Vomiting No 05/29/24 09:30 AUTOMATION AND CONTROLS [email or web address] Anesthesia Postop Eval I: Fluid Summary Crystalloid volume administer 1,500 05/29/24 09:30 AUTOMATION AND CONTROLS [email or web address] (ml) Colloids volume administered ( ml) Blood Product volume administered (ml) Total IV fluid infused 1,500 05/29/24 09:30 AUTOMATION AND CONTROLS [email or web address] Anesthesia Postop Eval I: Summary Notes Anesthesia Complication No 05/29/24 09:30 AUTOMATION AND CONTROLS [email or web address] Anesthesia Complication Comment: Post-operative progress note Anesthesia: Postop Eval II Evaluation Mental status: Awake Pain Level: 2 nausea: No Vomiting: No
--- NOTE | 2024-05-29 14:13 | PCM.POSTANE2 ---
Anesthesia Postop Eval I Sum Postop Eval Completion status Anesthesia document: Postop Eval 1 completed: Yes Anesthesia Postop Eval I Summary Anesthesia Postop Eval I Summary: Anesthesia Postop Eval I: Assessment Summary Airway patent Yes 05/29/24 09:30 [email or web address] Spontaneous unlabored Yes 05/29/24 09:30 [email or web address] respirations Mental status Asleep 05/29/24 09:30 [email or web address] nausea No 05/29/24 09:30 [email or web address] Vomiting No 05/29/24 09:30 [email or web address] Anesthesia Postop Eval I: Fluid Summary Crystalloid volume administer 1,500 05/29/24 09:30 [email or web address] (ml) Colloids volume administered ( ml) Blood Product volume administered (ml) Total IV fluid infused 1,500 05/29/24 09:30 [email or web address] Anesthesia Postop Eval I: Summary Notes Anesthesia Complication No 05/29/24 09:30 [email or web address] Anesthesia Complication Comment: Post-operative progress note Anesthesia: Postop Eval II Evaluation Mental status: Awake Pain Level: 2 nausea: No Vomiting: No
== END 2024-05-29 13:24 | disposition home or self-care (01) ==
LOC: SDC 05:46 → AC 05:48
PROVIDERS: PCP Internal Medicine; Referring Provider Surgery; Visit Provider Surgery
PROC: 0FT44ZZ Resection of Gallbladder, Percutaneous Endoscopic Approach (ICD-10-PCS; CPT 47562; principal; 2024-05-29 07:10)
DX: K80.10 Calculus of gallbladder with chronic cholecystitis without obstruction (principal); F17.210 Nicotine dependence, cigarettes, uncomplicated; F17.220 Nicotine dependence, chewing tobacco, uncomplicated
CPT/HCPCS: 47562; 00790; S2900; 88304; 93005; A4216; J2405

== ENCOUNTER → 2024-06-09 | Outpatient (CLI) | payer OTHER, SELFPAY ==
[2024-06-09 14:07] LABS: AST(SGOT) 41 U/L (<=37); Alanine Aminotransfer ALT/SGPT 72 U/L (<=46); Albumin, Serum 4.2 g/dL (3.5-5.0); Alkaline Phosphatase 63 U/L (40-129); Bilirubin, Direct 0.19 mg/dL (0.00-0.30); Globulin 3.2 g/dL (2.2-4.2); Protein, Total 7.4 g/dL (5.9-8.4); Total Bilirubin 0.37 mg/dL (0.00-1.30)
== END | disposition home or self-care (01) ==
LOC: PAVLAB 13:27
PROVIDERS: PCP Internal Medicine; Referring Provider Physician Assistant; Visit Provider Physician Assistant
DX: R74.8 Abnormal levels of other serum enzymes (principal); Z90.49 Acquired absence of other specified parts of digestive tract
CPT/HCPCS: 36415; 80076